=== PATIENT | female | born 1990 | race Caucasian/White ===

== ENCOUNTER 2017-02-23 22:30 | Emergency (ER) | payer SELFPAY ==
[~2017-02-23] VITALS: Ht 167.6 cm; Wt 130.0 kg
[~2017-02-23 22:30] MED LIST: CIPR500T4 PO; ONDA4 PO; OXYC-360 PO; Z.0.NO CURRENT MEDS
[2017-02-23 22:35] VITALS: BP 152/91; PULSE 88; RESP 20; TEMP 98.5; O2SAT 97
[2017-02-23] MEDS ORDERED: LORA-392 PO (22:49)
[2017-02-23] MEDS ORDERED: TOPI200 PO (22:49)
[2017-02-23] MEDS ORDERED: VENL75TA PO (22:49)
[2017-02-23] MEDS ORDERED: LOTR15T TOPICAL (22:51)
--- NOTE | 2017-02-23 22:51 | PD ---
HPI Chief Complaint: Skin Problem Time Seen by Provider: 22:49 Travel History International Travel<30 days: No Contact w/Intl Traveler<30days: No Traveled to known affect area: No History of Present Illness HPI 19-year-old female presents to the emergency room for evaluation of rash on her right forearm that started 2 weeks ago. 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 Patient came today because it seemed to be getting worse as of last night. She reports increasing itchiness and redness. Rash is mostly itchy but at times is painful. She has been applying hydrocortisone without any significant relief in symptoms. PFSH Past Medical History Asthma: Yes Anxiety: Yes Depression: Yes Diminished Hearing: No Headaches: Yes Immunizations Current: Yes Tetanus Vaccination: < 5 Years Influenza Vaccination: No ?: Not LMP: 02-13-17 : 0 Past Surgical History Surgical History: No Previous Surgery Social History Alcohol Use: No Tobacco Use: No Substance Use: No Allergies-Medications (Allergen,Severity, Reaction): Coded Allergies: No Known Allergies (Verified , 02/23/17) Reported Meds & Prescriptions Reported Meds & Active Scripts Active Lotrisone Topical (Betamethasone/Clotrimazole) 1-0.05% Cream 1 Applic TOPICAL BID Reported Effexor (Venlafaxine HCl) 75 Mg Tab 75 Mg PO DAILY Ativan (Lorazepam) 0.5 Mg Tab 0.5 Mg PO Q8H PRN Topamax (Topiramate) 200 Mg Tab 200 Mg PO DAILY Review of Systems Except as stated in HPI: all other systems reviewed are Neg Physical Exam Narrative GENERAL: Well-nourished, well-developed female in no acute distress. Afebrile. Ambulatory. SKIN: Focused skin assessment warm/dry. 6 maculopapular, annular, raised lesions on the right medial forearm with central clearing and scaling. Lesions are in a line. HEAD: Normocephalic. EYES: No scleral icterus. No injection or drainage. NECK: Supple, trachea midline. No JVD or lymphadenopathy. CARDIOVASCULAR: Regular rate and rhythm without murmurs, gallops, or rubs. RESPIRATORY: Breath sounds equal bilaterally. No accessory muscle use. PSYCHIATRIC: No delusional thought processes. No hallucinations. Data Data Last Documented VS Vital Signs Date Time Temp Pulse Resp B/P Pulse Ox O2 Delivery O2 Flow Rate FiO2 02/23/17 22:42 02/23/17 22:35 98.5 88 20 97 [facility] Medical Decision Making Medical Screen Exam Complete: Yes Emergency Medical Condition: Yes Medical Record Reviewed: Yes Differential Diagnosis Tinea corporis versus shingles versus atopic dermatitis Narrative Course 19-year-old female presents to the emergency room for evaluation of itchy rash to her right forearm for the past 2 weeks. Worsened last night. Physical exam reveals 6 annular, raised, erythematous lesions with central clearing and scaling. This is tinea corporis. Patient will be discharged with Lotrisone cream and told to follow up with primary care physician or return to the emergency room for worsening symptoms. She understands and agrees to plan. Diagnosis Primary Impression: Tinea corporis Referrals: Primary Care Physician Patient Instructions: General Instructions, Tinea Corporis (ED) Additional Instructions: Rest and drink plenty of fluids. Apply cream as directed for up to 4 weeks. Follow-up with a primary care physician. Return to the emergency room for worsening symptoms. Med/Other Pt SpecificInfo: Prescription(s) given Scripts Betamethasone-Clotrimazole Topical (Lotrisone Topical)1-0.05% Cream1 Applic TOPICAL BID #45 GM Ref 0 Prov:Marc Lui MD 02/23/17 Disposition: 01 DISCHARGE HOME Condition: Stable Maggie Payne February 23, 2017 22:50
== END 2017-02-23 22:55 | disposition home or self-care (01) ==
LOC: PHEFT 22:30
DX: B35.4 Tinea corporis (principal)
CPT/HCPCS: 99283

== ENCOUNTER 2017-04-26 17:10 | Emergency (ER) | payer SELFPAY ==
[~2017-04-26] VITALS: Ht 167.6 cm; Wt 125.0 kg
[~2017-04-26 17:10] MED LIST changes: -CIPR500T4 PO; +LORA-392 PO; +LOTR15T TOPICAL; -ONDA4 PO; -OXYC-360 PO; +TOPI200 PO; +VENL75TA PO; -Z.0.NO CURRENT MEDS
[2017-04-26 17:12] VITALS: BP 172/85; PULSE 83; RESP 14; TEMP 98.3; O2SAT 99
[2017-04-26] MEDS ORDERED: SODIUM CHLOR 0.9% 1000 ML INJ 1,000 ML IV SCH (19:17)
--- NOTE | 2017-04-26 19:23 | PD ---
HPI Chief Complaint: Abdominal Pain Time Seen by Provider: 19:20 Travel History International Travel<30 days: No Contact w/Intl Traveler<30days: No Traveled to known affect area: No History of Present Illness HPI Patient comes in complaining of right lower quadrant abdominal pain ongoing for 3 days. Patient reports associated nausea that started yesterday. Patient reports she started her menstrual cycle today. Patient states she has a history of PCOS is uncertain if this is related to her pain or if its from something else. Patient's pain is sharp stabbing pain that radiates across her lower abdomen. Pain waxes and wanes. Patient tried taking ibuprofen with minimal to no improvement of her symptoms. Patient denies anything making the pain worse. Denies any fevers, chest pain, shortness of breath, back pain, loss or change in bowel or bladder, abdominal surgeries, , or known trauma. PFSH Past Medical History Asthma: Yes Anxiety: Yes Depression: Yes Diminished Hearing: No Headaches: Yes Immunizations Current: Yes Influenza Vaccination: No ?: Not LMP: 02-21-17 : 0 Social History Alcohol Use: No (occasion) Tobacco Use: No Substance Use: No Allergies-Medications (Allergen,Severity, Reaction): Coded Allergies: No Known Allergies (Verified , 02/23/17) Reported Meds & Prescriptions Reported Meds & Active Scripts Active Reported Ativan (Lorazepam) 0.5 Mg Tab 0.5 Mg PO Q8H PRN Review of Systems Except as stated in HPI: all other systems reviewed are Neg Physical Exam Narrative GENERAL: Well-developed, overly nourished, in no acute distress, and non-ill appearing. SKIN: Focused skin assessment warm and dry. HEAD: Atraumatic. Normocephalic. EYES: Pupils equal and round. EOMI. No scleral icterus. No injection or drainage. ENT: No nasal bleeding or discharge. Mucous membranes pink and moist. NECK: Trachea midline. Supple. No nuclear rigidity. CARDIOVASCULAR: Regular rate and rhythm. No murmur appreciated. RESPIRATORY: No accessory muscle use. No respiratory distress. Clear to auscultation. Breath sounds equal bilaterally. GASTROINTESTINAL: Abdomen soft, nondistended, and no guarding. Hepatic and splenic margins not palpable. Normal bowel sounds 4. No pulsatile mass. Patient works tenderness to palpation right lower quadrant. There is no rebound tenderness. MUSCULOSKELETAL: No obvious deformities. No clubbing. No cyanosis. No edema. Full range of motion. NEUROLOGICAL: Awake and alert. No obvious cranial nerve deficits. Motor grossly within normal limits. Normal speech. PSYCHIATRIC: Appropriate mood and affect; insight and judgment normal. Data Data Last Documented VS Vital Signs Date Time Temp Pulse Resp B/P Pulse Ox O2 Delivery O2 Flow Rate FiO2 04/26/17 19:32 100 Room Air 04/26/17 18:54 18 04/26/17 17:12 98.3 83 172/85 Orders Complete Blood Count With Diff (04/26/17 19:17) Comprehensive Metabolic Panel (04/26/17 19:17) Lipase (04/26/17 19:17) Prothrombin Time / Inr (Pt) (04/26/17:) Act Partial Throm Time (Ptt) (04/26/17:17) Urinalysis - C+S If Indicated (04/26/17 19:17) Ct Abd/Pel W Iv Contrast(Rout) (04/26/17 19:17) Iv Access Insert/Monitor (04/26/17 19:17) Ecg Monitoring (04/26/17 19:17) Oximetry (04/26/17 19:17) NPO (04/26/17 19:17) Morphine Inj (Morphine Inj) (04/26/17 19:30) Ondansetron Inj (Zofran Inj) (04/26/17 19:30) Sodium Chlor 0.9% 1000 Ml Inj (Ns 1000 M (04/26/17 19:17) Sodium Chloride 0.9% Flush (Ns Flush) (04/26/17 19:30) Ed Urine Pregnancytest Poc (04/26/17 19:17) Oral Contrast - Adult (04/26/17 19:23) Diatrizoate Liq ( Gastroview Liq) (04/26/17 19:35) Urine Culture (04/26/17 20:00) Iohexol 350 Inj (Omnipaque 350 Inj) (04/26/17 21:35) Labs Laboratory Tests Test 04/26/17 20:00 White Blood Count 8.1 TH/MM3 Red Blood Count 4.43 MIL/MM3 Hemoglobin 13.6 GM/DL Hematocrit 40.6 % Mean Corpuscular Volume 91.7 FL Mean Corpuscular Hemoglobin 30.6 PG Mean Corpuscular Hemoglobin 33.4 % Concent Red Cell Distribution Width 14.1 % Platelet Count 402 TH/MM3 Mean Platelet Volume 7.6 FL Neutrophils (%) (Auto) 56.7 % Lymphocytes (%) (Auto) 28.4 % Monocytes (%) (Auto) 13.1 % Eosinophils (%) (Auto) 1.0 % Basophils (%) (Auto) 0.8 % Neutrophils # (Auto) 4.6 TH/MM3 Lymphocytes # (Auto) 2.3 TH/MM3 Monocytes # (Auto) 1.1 TH/MM3 Eosinophils # (Auto) 0.1 TH/MM3 Basophils # (Auto) 0.1 TH/MM3 CBC Comment DIFF FINAL Differential Comment Prothrombin Time 10.6 SEC Prothromb Time International 1.0 RATIO Ratio Activated Partial 25.9 SEC Thromboplast Time Urine Color LIGHT-RED Urine Turbidity HAZY Urine pH 6.0 Urine Specific [place] 1.041 Urine Protein 30 mg/dL Urine Glucose (UA) NEG mg/dL Urine Ketones TRACE mg/dL Urine Occult Blood LARGE Urine Nitrite NEG Urine Bilirubin NEG Urine Urobilinogen LESS THAN 2.0 MG/DL Urine Leukocyte Esterase SMALL Urine RBC /hpf Urine WBC 29 /hpf Urine Squamous Epithelial 5 /hpf Cells Urine Calcium Oxalate Crystals OCC /hpf Urine Mucus MOD /lpf Microscopic Urinalysis Comment CULTURE INDICATED Sodium Level 140 MEQ/L Potassium Level 4.0 MEQ/L Chloride Level 106 MEQ/L Carbon Dioxide Level 26.5 MEQ/L Anion Gap 8 MEQ/L Blood Urea Nitrogen 11 MG/DL Creatinine 0.97 MG/DL Estimat Glomerular Filtration 68 ML/MIN Rate Random Glucose 69 MG/DL Calcium Level 9.8 MG/DL Total Bilirubin 0.5 MG/DL Aspartate Amino Transf 30 U/L (AST/SGOT) Alanine Aminotransferase 38 U/L (ALT/SGPT) Alkaline Phosphatase 49 U/L Total Protein 7.3 GM/DL Albumin 3.7 GM/DL Lipase 143 U/L MDM Medical Decision Making Medical Screen Exam Complete: Yes Emergency Medical Condition: Yes Interpretation(s) CT the abdomen and pelvis read by the radiologist shows: 1. No acute inflammatory process. 2. Punctate nonobstructing bilateral renal calculi. 3. Normal appendix. Differential Diagnosis Appendicitis, UTI, ovarian cyst, colitis, ectopic , ovarian torsion, other Narrative Course The patient presented with right sided abdominal pain and the patient was accordingly mildly tender. The patient otherwise appeared comfortable and hydrated. Laboratory and radiologic evaluation with a contrasted CT scan of the abdomen and pelvis was performed to rule out appendicitis. Evaluation revealed no clinical evidence of acute appendicitis at this time. However the patient was given appendicitis warnings an informed of possible early appendicitis not detected. The patient was instructed to follow up with their regular physician for re-evaluation within the next 24 hours, or may return here for re- evaluation. The patient is to return if worsens, pain worsens or changes, develop persistent fever, inability to tolerate fluids with or without vomiting , unable to establish follow up or as needed. There was no evidence of an acute , surgical abdomen at this time. There was no clinical evidence to support cholecystitis/cholelithiasis, pancreatitis, perforation of gastric ulcer, colitis, diverticulitis, obstruction, volvulus, early appendicitis, or hernial incarceration or strangulation at this time. There was no evidence to support vascular pathology such as AAA, mesenteric ischemia. There was also no clinical evidence by history, exam or risk factors to suggest atypical presentation of cardiac disease such as ACS, AMI or atypical angina. No evidence to suggest genitourinary etiology as well. During the course of the ED visit the patient was given IVF, the patient noted improvement. The patient agreed with plan of care and management. The patient was instructed to follow up with their physician. Patient in no obvious distress upon re-evaluation. All pertinent laboratory/ Radiology result(s) discussed with patient. Any questions/concerns in reference to patient diagnosis/condition discussed and clarified prior to patient's discharge. Reinforced sheer importance of close follow up with patient 's primary physician or primary care clinic. Instructed patient to return to ED immediately, if symptoms return/worsen. Pt showed understanding of above instructions. Further instructions and recommendations were detailed in discharge paperwork. Pt ambulated without difficulty out of ED at discharge. Diagnosis Primary Impression: Right lower quadrant abdominal pain Patient Instructions: Abdominal Pain (ED), General Instructions Additional Instructions: Follow-up with your primary care physician or return here in 24 hours for recheck. Use [id number] Tylenol and/or ibuprofen as needed for pain. Follow instructions on the packaging. Return to the emergency department if symptoms get worse, fevers, unable to tolerate fluids, or for other concerns.. Disposition: 01 DISCHARGE HOME Condition: Serious Sherwin Irwin Apr 26, 2017 19:23
[2017-04-26] MEDS ORDERED: ONDANSETRON HCL 4 MG/2 ML VIAL IVP ONE (19:30)
[2017-04-26] MEDS ORDERED: MORPHINE SULFATE 4 MG/ML INJ IV PUSH ONE (19:30)
[2017-04-26] MEDS ORDERED: SODIUM CHLORIDE 0.9% FLUSH 10 ML FLUSH IV FLUSH PRN (19:30)
[2017-04-26 19:32] VITALS: O2SAT 100
[2017-04-26] MEDS ORDERED: DIATRIZOATE MEGLUM/DIATRIZOATE SOD 9 ML CUP ONE (19:35)
[2017-04-26 20:28] LABS: AUTOMATED NEUTROPHIL # 4.6 TH/MM3 (1.8-7.7); BASOPHIL # 0.1 TH/MM3 (0-0.2); BASOPHIL % 0.8 % (0.0-2.0); EOSINOPHIL # 0.1 TH/MM3 (0-0.4); HEMATOCRIT 40.6 % (35.0-46.0); HEMO FLAGS DIFF FINAL; LYMPH % 28.4 % (9.0-44.0); LYMPHOCYTE # 2.3 TH/MM3 (1.0-4.8); MEAN CELL VOLUME 91.7 FL (80.0-100.0); MEAN CORPUSCULAR HEMOGLOBIN 30.6 PG (27.0-34.0); MEAN CORPUSCULAR HGB CONC 33.4 % (32.0-36.0); MONO % 13.1 % (0.0-8.0); NEUT % 56.7 % (16.0-70.0); PLATELET COUNT 402 TH/MM3 (150-450); RED BLOOD COUNT 4.43 MIL/MM3 (4.00-5.30); RED CELL DISTRIBUTION WIDTH 14.1 % (11.6-17.2); WHITE BLOOD COUNT 8.1 TH/MM3 (4.0-11.0)
[2017-04-26 20:47] LABS: APTT (PATIENT) 25.9 SEC (24.3-30.1); PROTHROMBIN TIME - PATIENT 10.6 SEC (9.8-11.6)
[2017-04-26 20:53] LABS: ALT (GPT) 38 U/L (10-53)
[2017-04-26 20:55] LABS: ALKALINE PHOSPHATASE 49 U/L (45-117); ANION GAP 8 MEQ/L (5-15); AST (GOT) 30 U/L (15-37); BICARBONATE 26.5 MEQ/L (21.0-32.0); BLOOD UREA NITROGEN 11 MG/DL (7-18); CHLORIDE 106 MEQ/L (98-107); GLOMERULAR FILTRATION RATE 68 ML/MIN (>89); SODIUM (NA) 140 MEQ/L (136-145); TOTAL BILIRUBIN ADULT 0.5 MG/DL (0.2-1.0)
[2017-04-26 20:58] LABS: BLOOD, URINE LARGE (NEG); CALCIUM OXALATE CRYSTALS,URINE OCC /hpf; GLUCOSE,URINE NEG (NEG); KETONE, URINE TRACE mg/dL (NEG); MUCUS URINE MOD /lpf (OCC); NITRITE,URINE NEG (NEG); SQUAMOUS EPITHELIAL CELL URINE 5 /hpf (0-5)
[2017-04-26 20:59] LABS: URINE COLOR LIGHT-RED (YELLW/STRAW)
[2017-04-26 21:00] LABS: COMMENT (UR) CULTURE INDICATED; CULTURE IF INDICATED CULTURE INDICATED
[2017-04-26] MEDS ORDERED: IOHEXOL 350 MG/ML 10 ML VIAL (for RAD DIAG) IV ONE (21:35)
--- NOTE | 2017-04-26 21:47 | RADRPT ---
EXAM DATE/TIME: 04/26/2017 21:31 [facility] COMPARISON: No previous studies available for comparison. INDICATIONS : Right lower quadrant pain. IV CONTRAST: 95 cc Omnipaque 350 (iohexol) IV ORAL CONTRAST: Prescribed oral contrast ingested. RADIATION DOSE: 28.55 CTDIvol (mGy) ; Patient body habitus MEDICAL HISTORY : None SURGICAL HISTORY : None. ENCOUNTER: Initial ACUITY: 3 days PAIN SCALE: 5/10 LOCATION: Right lower quadrant TECHNIQUE: Volumetric scanning of the abdomen and pelvis was performed. Using automated exposure control and ad justment of the mA and/or kV according to patient size, radiation dose was kept as low as reasonably achievable to obtain optimal diagnostic quality images. DICOM format image data is available electro nically for review and comparison. FINDINGS: LOWER LUNGS: The visualized lower lungs are clear. LIVER: Homogeneous density without lesion. There is no dilation of the biliary tree. No calcified gallston es. SPLEEN: Normal size without lesion. PANCREAS: Within normal limits. KIDNEYS: Normal in size and shape. There is no mass or hydronephrosis. Punctate nonobstructing bilateral judy l calculi measures to 3 mm. ADRENAL GLANDS: Within normal limits. VASCULAR: There is no aortic aneurysm. BOWEL/MESENTERY: The stomach, small bowel, and colon demonstrate no acute abnormality. There is no free intraperitone al air or fluid. Normal appendix. ABDOMINAL WALL: Within normal limits. RETROPERITONEUM: There is no lymphadenopathy. BLADDER: No wall thickening or mass. REPRODUCTIVE: Within normal limits. INGUINAL: There is no lymphadenopathy or hernia. MUSCULOSKELETAL: Within normal limits for patient age. CONCLUSION: 1. No acute inflammatory process. 2. Punctate nonobstructing bilateral renal calculi. 3. Normal appendix. Jace Baker MD on April 26, 2017 at 21:43 Board Certified Radiologist. This report was verified electronically.
== END 2017-04-26 22:00 | disposition home or self-care (01) ==
LOC: NEPD 17:10
DX: R10.31 Right lower quadrant pain (principal); N20.0 Calculus of kidney; J45.909 Unspecified asthma, uncomplicated; F41.9 Anxiety disorder, unspecified; F32.9 Major depressive disorder, single episode, unspecified; Z79.899 Other long term (current) drug therapy
CPT/HCPCS: 74177; 80053; 81001; 83690; 84703; 85025; 85610; 85730; 87086; 96360; 96374; 96375; 99285; J2270; J2405; J7030; Q9963; Q9967

== ENCOUNTER 2017-06-09 13:16 | Emergency (ER) | payer SELFPAY ==
[~2017-06-09] VITALS: Ht 167.6 cm; Wt 125.0 kg
[~2017-06-09 13:16] MED LIST changes: -LOTR15T TOPICAL; -TOPI200 PO; -VENL75TA PO
[2017-06-09 13:18] VITALS: BP 147/72; PULSE 98; RESP 15; TEMP 98.2; O2SAT 99
[2017-06-09] MEDS ORDERED: BACT800T5 PO (13:36)
[2017-06-09] MEDS ORDERED: CEPH-460 PO (13:36)
[2017-06-09] MEDS ORDERED: IBUP800T23 PO (13:36)
[2017-06-09] MEDS ORDERED: BUSP10TA PO (13:38)
--- NOTE | 2017-06-09 13:38 | PD ---
HPI Chief Complaint: Skin Problem Time Seen by Provider: 13:34 Travel History International Travel<30 days: No Contact w/Intl Traveler<30days: No Traveled to known affect area: No History of Present Illness HPI 27-year-old female presents emergency Department with complaint of a rash to bilateral armpits 2-2-1/2 weeks. Was told she had contact dermatitis and Has been using hydrocortisone once to twice daily with no relief of symptoms. Denies fever, vomiting. Reports pus coming from some of the bumps. Has not tried any other medications or treatments to alleviate her symptoms. Has no medical complaints. Symptoms are mild in severity. No other modifying factors or associated signs and symptoms. PFSH Past Medical History Asthma: Yes Anxiety: Yes Depression: Yes Diminished Hearing: No Headaches: Yes Immunizations Current: Yes Tetanus Vaccination: Unknown ?: Unknown LMP: 05/2017 : 0 Social History Alcohol Use: No (occasion) Tobacco Use: No Substance Use: No Allergies-Medications (Allergen,Severity, Reaction): Coded Allergies: No Known Allergies (Verified , 02/23/17) Reported Meds & Prescriptions Reported Meds & Active Scripts Active Ibuprofen 800 Mg Tab 800 Mg PO Q6HR PRN Bactrim DS (Sulfamethoxazole-Trimethoprim) 800-160 Mg Tab 1 Tab PO BID 10 Days Keflex (Cephalexin) 500 Mg Cap 500 Mg PO Q6H 10 Days Reported Buspirone (Buspirone HCl) 10 Mg Tab 10 Mg PO BID Review of Systems Except as stated in HPI: all other systems reviewed are Neg Physical Exam Narrative GENERAL: Well-nourished, well-developed female patient, in no acute distress SKIN: Warm and dry. Bilateral axilla with multiple pimple-like pustules; a few of the pustules are with minimal surrounding erythema; no drainage noted; no lymphadenopathy; no lymphangitis. HEAD: Atraumatic. Normocephalic. EYES: Pupils equal and round. No scleral icterus. No injection or drainage. ENT: Mucosa pink and moist. Airway patent. NECK: Trachea midline. CARDIOVASCULAR: Regular rate. RESPIRATORY: No accessory muscle use. GASTROINTESTINAL: Obese. MUSCULOSKELETAL: No obvious deformities. No clubbing. No cyanosis. No edema. NEUROLOGICAL: Awake and alert. Oriented 3. No obvious cranial nerve deficits. Motor grossly within normal limits. Normal speech. PSYCHIATRIC: Appropriate mood and affect; insight and judgment normal. Data Data Last Documented VS Vital Signs Date Time Temp Pulse Resp B/P (MAP) Pulse Ox O2 Delivery O2 Flow Rate FiO2 06/09/17 13:40 06/09/17 13:18 98.2 98 15 99 [facility] Medical Decision Making Medical Screen Exam Complete: Yes Emergency Medical Condition: Yes Medical Record Reviewed: Yes Differential Diagnosis Folliculitis, cellulitis, contact dermatitis, abscess Narrative Course 27-year-old female with rash to bilateral axilla consistent with possible folliculitis. Patient is afebrile and nontoxic-appearing. Denies fever, vomiting. Keflex, Bactrim, ibuprofen prescribed for home. Instructed patient to follow-up with dermatology. Instructed patient to follow up with primary care provider. Patient verbalizes understanding and agreement with treatment plan. Patient is medically cleared and stable for discharge. Discussed reasons to return to the emergency department. Patient agrees with treatment plan. The patients vital signs are stable and the patient is stable for outpatient follow-up and treatment. Patient discharged home, stable and in no acute distress. Diagnosis Primary Impression: Rash and nonspecific skin eruption Referrals: Primary Care Physician Patient Instructions: Acute Rash (ED), Folliculitis (ED), General Instructions Departure Forms: Tests/Procedures, Work Release Enter return to work date: Jun 10, 2017 Additional Instructions: Antibiotics as prescribed Keep area clean and dry Stop shaving until the rash clears Follow-up with primary care provider Follow-up with hatch tender Return to the emergency department immediately if worsening of symptoms Med/Other Pt SpecificInfo: Prescription(s) given Scripts Ibuprofen (Ibuprofen) 800 Mg Tab 800 MG PO Q6HR Y for PAIN, #30 TAB 0 Refills Prov: Klaudia Chan 06/09/17 Sulfamethoxazole-Trimethoprim (Bactrim DS) 800-160 Mg Tab 1 TAB PO BID for Infection for 10 Days, TAB 0 Refills Prov: Klaudia Chan 06/09/17 Cephalexin (Keflex) 500 Mg Cap 500 MG PO Q6H for Infection for 10 Days, CAP 0 Refills Prov: Klaudia Chan 06/09/17 Disposition: 01 DISCHARGE HOME Condition: Stable Klaudia Chan Jun 09, 2017 13:38
== END 2017-06-09 13:48 | disposition home or self-care (01) ==
LOC: NEPK 13:16
DX: R21 Rash and other nonspecific skin eruption (principal); J45.909 Unspecified asthma, uncomplicated; F41.9 Anxiety disorder, unspecified; F32.9 Major depressive disorder, single episode, unspecified
CPT/HCPCS: 99284